=== PATIENT | female | born 1955 | race Caucasian/White ===

== ENCOUNTER 2024-07-13 09:10 | Day surgery (SDC) | payer MEDICARE ==
[2024-07-10 14:49] LABS: BASOPHILS % (AUTO) 0.8 % (0-1); EOSINOPHILS # (AUTO) 0.1 X10'3 (0-0.9); EOSINOPHILS % (AUTO) 1.8 % (0-6); LYMPHOCYTES # (AUTO) 1.2 X10'3 (1.1-4.8); LYMPHOCYTES % (AUTO) 24.3 % (21-51); MEAN CORPUSCULAR HEMOGLOBIN 32.5 PG (27.0-31.0); MEAN CORPUSCULAR HGB CONC 32.9 g/dL (33.0-36.5); MEAN CORPUSCULAR VOLUME 98.6 FL (78-98); MEAN PLATELET VOLUME 7.1 FL (7.4-10.4); MONOCYTES # (AUTO) 0.4 X10'3 (0-0.9); MONOCYTES % (AUTO) 8.8 % (2-12); NEUTROPHILS # (AUTO) 3.2 X10'3 (1.8-7.7); NEUTROPHILS % (AUTO) 64.3 % (42-75); PRE OP HEMATOCRIT 44.8 % (35.0-45.0); PRE OP HEMOGLOBIN 14.7 g/dL (12.0-16.0); PRE OP PLATELET COUNT 279 X10'3 (140-440); PRE OP WHITE BLOOD COUNT 4.9 10'3 (4.8-10.8); RED BLOOD COUNT 4.54 X10'6 (4.20-5.60); RED CELL DISTRIBUTION WIDTH 13.9 % (11.5-14.5)
[2024-07-10 15:04] LABS: ALBUMIN 3.7 G/DL (3.4-5.0); ALBUMIN/GLOBULIN RATIO 1.1 (1.1-1.5); ALKALINE PHOSPHATASE 73 IU/L (46-116); BLOOD UREA NITROGEN 14 MG/DL (7-18); BUN/CREATININE RATIO 18.9 (10.0-20.0); CALCIUM 9.3 MG/DL (8.5-10.1); CHLORIDE 103 MMOL/L (99-107); CREATININE 0.74 MG/DL (0.40-0.90); PRE OP ALT 35 U/L (30-65); PRE OP ANION GAP 6 (8-16); PRE OP AST 27 U/L (10-37); PRE OP BILIRUB, TOTAL 2.1 MG/DL (0.0-1.0); PRE OP GLUCOSE 88 MG/DL (70-104); PRE OP POTASSIUM 4.1 MMOL/L (3.4-5.1); PRE OP SODIUM 139 MMOL/L (135-145); TOTAL CARBON DIOXIDE 30.1 MMOL/L (24-32); TOTAL PROTEIN 7.1 G/DL (6.4-8.2); eGFR 78 ML/MIN
[~2024-07-13] VITALS: Ht 162.6 cm; Wt 83.5 kg
[2024-07-13] VITALS (14 sets, daily range): BP systolic 133–164; BP diastolic 73–106; PULSE 58–69; RESP 12–24; TEMP 98.2; O2SAT 94–99
[~2024-07-13 09:10] MED LIST: LEVO75TA7 PO
[2024-07-13] MEDS: famotidine 20mg tablet PO ONE (10:06)
[2024-07-13] MEDS: cefazolin 2gm/D5W 100mL 100 ML IV ONE (10:07)
[2024-07-13] MEDS: ringers solution, lacted 1,000 ML IV SCH (10:07)
[2024-07-13] MEDS ORDERED: morphine 4 MG/ML inj SYRINge IV PRN (11:05)
[2024-07-13] MEDS ORDERED: ondansetron/PF 4mg/2ml inj IV PRN (11:05)
[2024-07-13] MEDS ORDERED: labetalol 20mg/4ml (5mg/ml) syringe IV PRN (11:05)
[2024-07-13] MEDS ORDERED: ringers solution, lacted 1,000 ML IV SCH (11:05)
[2024-07-13] MEDS ORDERED: meperidine/PF 25mg/ml syringe IV PRN ×2 (11:05)
[2024-07-13] MEDS ORDERED: morphine 2 MG/ML inj. syringe IV PRN (11:05)
[2024-07-13] MEDS ORDERED: proCHLORperazine 10 MG/2 ml inj IV PRN (11:05)
[2024-07-13] MEDS ORDERED: fentaNYL/PF 50MCG/1 ML 2ML syringe ONE (11:52)
[2024-07-13] MEDS ORDERED: MIDAZolam 1 MG/ML 5ML VIAL ONE (11:52)
[2024-07-13] MEDS: BUPIVAcaine/PF 2.5mg/ml (0.25%) 10ml vial ONE (12:16)
[2024-07-13] MEDS: LIDOcaine 2% (20mg/ml) 5ml vial ONE (12:18)
[2024-07-13] MEDS ORDERED: propofol inj 20 ML IV ONE (12:20)
[2024-07-13] MEDS ORDERED: acetaminophen 1,000mg/100ml IV 100 ML IV ONE (12:34)
[2024-07-13] MEDS: meperidine/PF 25mg/ml syringe IV PRN (13:04)
[2024-07-13] MEDS: enalaprilat dihydrate 2.5mg/2ml vial IV PRN (13:09)
[2024-07-13] MEDS: HYDROcodone/acetaminophen 5mg/325mg tablet PO ONE (14:03)
== END 2024-07-13 14:22 | disposition home or self-care (01) ==
LOC: PAS 09:10
PROVIDERS: ATTEND Orthopaedic Surgery Hand Surgery
DX: G56.22 Lesion of ulnar nerve, left upper limb (principal); E03.9 Hypothyroidism, unspecified; E66.9 Obesity, unspecified; I25.2 Old myocardial infarction; Z87.891 Personal history of nicotine dependence; Z79.890 Hormone replacement therapy; Z98.51 Tubal ligation status; Z98.891 History of uterine scar from previous surgery; Z98.890 Other specified postprocedural states; Z68.31 Body mass index [BMI] 31.0-31.9, adult; Z88.1 Allergy status to other antibiotic agents
CPT/HCPCS: 36415; 64719; 80053; 82948; 85025; 93005; A4215; A4618; A6446; A6449; A7000; J0131; J0690; J2001; J2175; J2250; J2704; J3010; J3490; J7030; J7120; Z7506; Z7512; Z7610